=== PATIENT | male | born 1995 | race Caucasian/White ===

== ENCOUNTER 2019-11-27 04:59 | Emergency (ER) | payer OTHER ==
[2019-11-27 05:56] VITALS: TEMP 99; BMI 25.1
[2019-11-27 06:56] LABS: HEMATOCRIT 45.4 % (35.4-49); HEMOGLOBIN 15.4 GM/dL (11.7-16.9); MCH 30.2 pg (25.7-33.7); MCHC 33.9 g/dl (32.0-35.9); MEAN CELL VOLUME 89.1 fl (80-96); MEAN PLT VOLUME 8.9 fl (7.5-11.1); PLATELET COUNT 210 K/MM3 (134-434); RBC 5.09 M/mm3 (4.00-5.60); RDW 13.1 % (11.9-15.9); WHITE BLOOD COUNT 10.3 K/mm3 (4.0-10.0)
[2019-11-27 07:36] LABS: ALBUMIN 4.2 g/dl (3.4-5.0); ALK PHOS 81 U/L (45-117); ANION GAP 9 MMOL/L (8-16); BILIRUBIN,TOTAL 0.8 mg/dL (0.2-1); CALCIUM 8.9 mg/dL (8.5-10.1); CHLORIDE 104 mmol/L (98-107); CO2 26 mmol/L (21-32); CREATININE 0.9 mg/dL (0.55-1.3); GLUCOSE,RANDOM 91 mg/dL (74-106); POTASSIUM 3.6 mmol/L (3.5-5.1); SGOT/AST 31 U/L (15-37); SGPT/ALT 51 U/L (13-61); SODIUM 138 mmol/L (136-145); TOT PROT 7.7 g/dl (6.4-8.2)
[2019-11-27] MEDS ORDERED: SODIUM CHLORIDE 0.9% 500 ML INFUS.BAG IV ONE (07:40)
--- NOTE | 2019-11-27 07:43 | PDOC ---
History of Present Illness - General Chief Complaint: Chest Pain Stated Complaint: CHEST TIGHTNESS Time Seen by Provider: 11/27/19 07:31 - History of Present Illness Initial Comments: Santiago Huffman is a 24 y/o male with no reported PMH presenting today with chest tightness. Reports that this started a few hours ago around 3am. Gradual onset. States that he was in his apartment when he felt that it was really warm. Denies radiation of sensation. No headache/dizziness. No shortness of breath. Non -exertional. Non pleuritic. No abd pain. No nausea/vomiting. No back pain. No dysuria/diarrhea. Reports that his symptoms has improved at this time. SocHx: smokes 1 pack every 2 weeks FamHx: no family history of ACS/CO Past History - Medical History Allergies/Adverse Reactions: Allergies Allergy/AdvReac Type Severity Reaction Status Date / Time No Known Allergies Allergy Verified 11/27/19 05:56 - Psycho-Social/Smoking History Smoking History: Never smoked - Substance Abuse Hx (Audit-C & DAST Scrn) How often the patient has a drink containing alcohol: Never Score: In Men: 4 or > Positive; In Women: 3 or > Positive: 0 Screen Result (Pos requires Nsg. Audit-10AR): Negative In the last yr the pt used illegal drug/Rx for NonMed reason: No Score: Yes response is considered Positive: 0 Screen Result (Positive result requires Nsg. DAST-10): Negative Review of Systems - Review of Systems Comments:: GENERAL/CONSTITUTIONAL: No fever or chills. No weakness._ HEAD, EYES, EARS, NOSE AND THROAT: No change in vision. No change in hearing. No sore throat._ CARDIOVASCULAR: Reports chest tightness. No shortness of breath_ RESPIRATORY: Denies cough, hemoptysis_ GASTROINTESTINAL: No nausea, vomiting, diarrhea or constipation._ GENITOURINARY: No dysuria, frequency, or change in urination._ MUSCULOSKELETAL: No joint or muscle swelling or pain. No neck or back pain._ SKIN: No rash_ NEUROLOGIC: No headache, vertigo, loss of consciousness, or change in strength/sensation._ ENDOCRINE: No increased thirst. No abnormal weight change_ HEMATOLOGIC/LYMPHATIC: No anemia, easy bleeding, or history of blood clots._ ALLERGIC/IMMUNOLOGIC: No hives or skin allergy._ *Physical Exam - Vital Signs Last Vital Signs Temp Pulse Resp BP Pulse Ox 99 F 68 18 142/79 99 11/27/19 05:00 11/27/19 09:00 11/27/19 09:00 11/27/19 09:00 11/27/19 09:00 - Physical Exam GENERAL: Awake, alert, and oriented to person/place/time, in no acute distress_ HEAD: No signs of trauma, normocephalic, atraumatic _ EYES: PERRLA, EOMI, sclera anicteric, conjunctiva clear_ ENT: Hearing grossly normal, nares patent, oropharynx clear without exudates. No uvular deviation. Moist mucosa_ NECK: Normal ROM, supple, no lymphadenopathy, JVD, or masses_ LUNGS: No distress, speaks in full sentences, clear to auscultation bilaterally _ HEART: Regular rate and rhythm, normal S1 and S2, no murmurs appreciated, peripheral pulses normal and equal bilaterally._ ABDOMEN: Soft, nontender, normoactive bowel sounds. No guarding, no rebound. No masses_ EXTREMITIES: Normal inspection, Normal range of motion, no edema. No clubbing or cyanosis_ NEUROLOGICAL: Cranial nerves II through XII grossly intact. Normal speech, normal gait, no focal sensorimotor deficits _ SKIN: Warm, Dry, normal turgor, no rashes or lesions noted_ Heart Score/ECG Review - History History: Slightly suspicious - Electrocardiogram EKG: Normal - Age Age: </= 45 - Risk Factors Risk Factors Heart Score: Yes Smoking History Based on the list above the patient has:: 1-2 risk factors - Troponin Troponin: </= normal limit - Score Heart Score - Total: 1 ED Treatment Course - LABORATORY CBC & Chemistry Diagram: 11/27/19 06:45 11/27/19 06:45 - ADDITIONAL ORDERS Additional order review: Laboratory Results 11/27/19 06:45 Sodium 138 Potassium 3.6 Chloride 104 Carbon Dioxide 26 Anion Gap 9 BUN 11.0 Creatinine 0.9 Est GFR (CKD-EPI)AfAm 138.06 Est GFR (CKD-EPI)NonAf 119.12 Random Glucose 91 Calcium 8.9 Total Bilirubin 0.8 AST 31 ALT 51 Alkaline Phosphatase 81 Troponin I < 0.02 Total Protein 7.7 Albumin 4.2 TSH 2.93 11/27/19 06:45 RBC 5.09 MCV 89.1 MCHC 33.9 RDW 13.1 MPV 8.9 - RADIOLOGY Radiology Studies Ordered: Category Date Time Status CHEST PA & LAT [RAD] Stat Radiology 11/27/19 07:42 Completed - Medications Given in the ED: ED Medications Discontinued Medications Generic Name Dose Route Start Last Admin Trade Name Tita PRN Reason Stop Dose Admin Sodium Chloride 1,000 ml 11/27/19 07:40 11/27/19 08:24 Normal Saline - IV 11/27/19 07:41 Not Given ONCE ONE Medical Decision Making - Medical Decision Making 11/27/19 07:50 24M no reported PMH presenting today with chest tightness that started last night around 3am. No chest pain/shortness of breath/dizziness. No syncope. HEART score 1. 11/27/19 07:52 EKG shows 106 bpm, sinus tachycardia, no axis deviation, KS 150, QTc 443, no ST elevation/depression. 11/27/19 07:53 Labs reviewed. Laboratory Last Values WBC 10.3 K/mm3 (4.0-10.0) H 11/27/19 06:45 RBC 5.09 M/mm3 (4.00-5.60) 11/27/19 06:45 Hgb 15.4 GM/dL (11.7-16.9) 11/27/19 06:45 Hct 45.4 % (35.4-49) 11/27/19 06:45 MCV 89.1 fl (80-96) 11/27/19 06:45 MCH 30.2 pg (25.7-33.7) 11/27/19 06:45 MCHC 33.9 g/dl (32.0-35.9) 11/27/19 06:45 RDW 13.1 % (11.9-15.9) 11/27/19 06:45 Plt Count 210 K/MM3 (134-434) 11/27/19 06:45 MPV 8.9 fl (7.5-11.1) 11/27/19 06:45 Sodium 138 mmol/L (136-145) 11/27/19 06:45 Potassium 3.6 mmol/L (3.5-5.1) 11/27/19 06:45 Chloride 104 mmol/L (98-107) 11/27/19 06:45 Carbon Dioxide 26 mmol/L (21-32) 11/27/19 06:45 Anion Gap 9 MMOL/L (8-16) 11/27/19 06:45 BUN 11.0 mg/dL (7-18) 11/27/19 06:45 Creatinine 0.9 mg/dL (0.55-1.3) 11/27/19 06:45 Est GFR (CKD-EPI)AfAm 138.06 11/27/19 06:45 Est GFR (CKD-EPI)NonAf 119.12 11/27/19 06:45 Random Glucose 91 mg/dL (74-106) 11/27/19 06:45 Calcium 8.9 mg/dL (8.5-10.1) 11/27/19 06:45 Total Bilirubin 0.8 mg/dL (0.2-1) 11/27/19 06:45 AST 31 U/L (15-37) 11/27/19 06:45 ALT 51 U/L (13-61) 11/27/19 06:45 Alkaline Phosphatase 81 U/L (45-117) 11/27/19 06:45 Troponin I < 0.02 ng/ml (0.00-0.05) 11/27/19 06:45 Total Protein 7.7 g/dl (6.4-8.2) 11/27/19 06:45 Albumin 4.2 g/dl (3.4-5.0) 11/27/19 06:45 11/27/19 07:54 CXR negative for acute intrathoracic pathology. Pt reassessed. Plan to d/c home with PCP f/u. All questions answered. Return precautions given. Pt verbalized understanding and agreement with plan. Discharge - Discharge Information Problems reviewed: Yes Clinical Impression/Diagnosis: Chest tightness Condition: Stable Disposition: HOME - Admission No - Follow up/Referral Referrals: [facility] [place] Group] - Patient Discharge Instructions Additional Instructions: Please make a follow up appointment with your primary care doctor (referral provided here). Please keep yourself well hydrated and well nourished as much as possible. If you experience any new, worsening, or concerning symptoms, including worsening or different chest pain, shortness of breath, dizziness, nausea/vomiting, or any other concerns, please return to the emergency department. - Post Discharge Activity
[2019-11-27 09:18] VITALS: BP 142/79; PULSE 68
--- NOTE | 2019-11-27 09:50 | PDOC ---
Documentation entered by Phyllis Barbosa SCRIBE, acting as scribe for Nichole García MD. Nichole García MD: This documentation has been prepared by the scribe, Phyllis Crowell SCRIBE, under my direction and personally reviewed by me in its entirety. I confirm that the documentation accurately reflects all work, treatment, procedures, and medical decision making performed by me. Attending Attestation - Resident Resident Name: Luis Valdivia - ED Attending Attestation I have performed the following: I have examined & evaluated the patient, The case was reviewed & discussed with the resident, I agree w/resident's findings & plan, Exceptions are as noted - HPI HPI: 11/27/19 09:40 24 yo M occasional tob use p/w chest tightness began ~3AM this morning. Never had before. Denies SOB or cough. No fevers. No radiating. Non-exertional. Denies FH of sudden cardiac . No recent travel. No LE swelling. Reports occasional marijuana use, last used 2 days ago. No h/o clots. No other complaints. - Physicial Exam PE: 11/27/19 09:42 General: NAD Chest: CTAB, good air entry, no wheezes rales or rhonchi, no chest wall tenderness CVS: + s1 s2, RRR Extremities: warm and well perfused, no LE edema - Medical Decision Making 11/27/19 09:42 24 yo M with atypical chest pain, now improved, EKG without ischemic changes, doubt ACS as pain is atypical, no FH, only occasional tob use, EKG without ischemic changes. Also doubt PTX as BS clear and equal b/l and good O2 sat. Unlikely PE as patient with good O2 sat, Hr 88 at triage, no recent travel or prolonged immobility, no active cancer, no exogenous hormone use. Most likely msk pain. Plan: -labs -cxr -uziel ncontrol as needed -reasess, if no sig abnormalities on labs and imaging will d/c home iwth return precautions, counseled on smoking cessation, pt to f/u with PMD This clinical encounter is taking place during a federal and state health care emergency attributable to the novel Mahmood Virus pandemic. The Account Manager of the Department of Health and Human Services has declared, pursuant to the Public Health Service Act 319F-3 (42 U.S.C. 247d-6d), that a covered persons activities related to medical countermeasures against COVID-19 will be immune from liability under Federal and State law. Discharge - Discharge Information Problems reviewed: Yes Clinical Impression/Diagnosis: Chest tightness Condition: Stable Disposition: HOME - Follow up/Referral Referrals: [facility] [place] Group] - Patient Discharge Instructions Additional Instructions: Please make a follow up appointment with your primary care doctor (referral provided here). Please keep yourself well hydrated and well nourished as much as possible. If you experience any new, worsening, or concerning symptoms, including worsening or different chest pain, shortness of breath, dizziness, nausea/vomiting, or any other concerns, please return to the emergency department. - Post Discharge Activity
--- NOTE | 2019-11-27 12:51 | EKG ---
Test Reason : Blood Pressure : / mmHG Vent. Rate : 106 BPM Atrial Rate : 106 BPM P-R Int : 150 ms QRS Dur : 102 ms QT Int : 334 ms P-R-T Axes : 061 016 031 degrees QTc Int : 443 ms SINUS TACHYCARDIA INCOMPLETE RIGHT BUNDLE BRANCH BLOCK BORDERLINE ECG NO PREVIOUS ECGS AVAILABLE Confirmed by MD MARZENA, SIVA ([id number]) on 11/27/2019 12:51:34 PM Referred By: Confirmed By:SIVA IVAN MD
== END 2019-11-27 09:18 | disposition home or self-care (01) ==
LOC: JER 04:59
DX: R07.89 Other chest pain (principal)
CPT/HCPCS: 36415; 71046-TC-FY; 80053; 84443; 84484; 85027; 93005; 93010; 99285-25